=== PATIENT | female | born 1990 | race Caucasian/White ===

== ENCOUNTER 2021-10-19 14:07 | Emergency (ER) | payer BC, SELFPAY ==
--- NOTE | ~2021-10-19 | XR_ITS ---
EXAMINATION: XR chest 1V portable DATE: 10/19/2021 15:11 INDICATION: Shortness of breath and chest congestion TECHNIQUE: frontal view of the chest was obtained. COMPARISON: None FINDINGS: The lungs are clear with no focal airspace opacities, pulmonary edema, pleural effusion or pneumothor ax. Heart size is normal. Calcified left hilar lymph nodes consistent with old granulomatous disease. Visualized bones and soft tissues are unremarkable. IMPRESSION: 1. No acute cardiopulmonary disease. Reviewed, dictated and finalized at location A.
[2021-10-19 14:43] VITALS: BP 125/80; PULSE 65; RESP 18; TEMP 36.7; O2SAT 100
--- NOTE | 2021-10-19 14:59 | ED.URI ---
HPI - URI/Sore Throat General Chief Complaint: Upper Respiratory Infection Stated Complaint: congestion, cough Time Seen by Provider: 10/19/21 14:48 History of Present Illness HPI Narrative: 31-year-old female presents to the emergency room for evaluation of shortness of breath for 4 days. Patient states she has a history of asthma, and was recently diagnosed with COVID. Patient states that she has used her rescue inhaler twice with good benefit. Patient denies fever. Patient also complains of sinus congestion postnasal drip and cough. Related Data Allergies Allergy/AdvReac Type Severity Reaction Status Date / Time sulfamethoxazole Allergy Rash Verified 10/19/21 15:02 [From Bactrim] trimethoprim [From Bactrim] Allergy Rash Verified 10/19/21 15:02 Review of Systems Review of Systems: CONSTITUTIONAL: Denies fever, chills, or sweats. EYES: Denies visual changes, redness, or discharge. ENT: Denies rhinorrhea, congestion, sore throat, or otalgia. CARDIOVASCULAR: Denies chest pain, palpitations, or edema. RESPIRATORY: Reports cough and shortness of breath GASTROINTESTINAL: Denies abdominal pain, nausea, vomiting, or diarrhea. GENITOURINARY: Denies dysuria or hematuria. SKIN: Denies rash or itching. MUSCULOSKELETAL: Denies back pain, joint pain, or myalgia. NEUROLOGIC: Denies headache, numbness, dizziness, or weakness. PSYCHIATRIC: Denies anxiety or depression. Exam Narrative: GENERAL: Well-appearing, well-nourished, and in no acute distress. HEAD: Normocephalic, atraumatic. EYES: PERRLA and EOMI. ENT: Nares clear, no rhinorrhea or epistaxis. Mucous membranes moist. Oropharynx without tonsillar hypertrophy exudate or other lesions. Bilateral TMs pearly ladd nonbulging CHEST: Clear to auscultation. No respiratory distress. No wheezes rales or rhonchi HEART: Regular rate and rhythm. No murmur heard. Normal peripheral pulses. ABDOMEN: Soft, nontender, nondistended, normal active bowel sounds. EXTREMITIES: Normal range of motion. No edema. SKIN: Warm, dry, no rash. NEURO: No focal deficits. Alert and oriented x3. PSYCH: Normal mood and affect. Course Vital Signs Vital signs: Vital Signs Temperature 36.7 C 10/19/21 14:43 Pulse Rate 65 10/19/21 14:43 Respiratory Rate 18 10/19/21 14:43 Blood Pressure 125/80 10/19/21 14:43 Pulse Oximetry 100 10/19/21 14:43 Temperature 36.7 C 10/19/21 14:43 Pulse Rate 66 10/19/21 15:15 Respiratory Rate 18 10/19/21 15:15 Blood Pressure 125/80 10/19/21 14:43 Pulse Oximetry 100 10/19/21 14:43 Discharge Plan Discharge Clinical Impression: COVID-19 Patient Disposition: Home, Self-Care Condition: Stable Instructions: Antibiotic Form Additional Instructions: Recommend taking Tylenol and ibuprofen as needed for body aches and fevers. May take Mucinex DM for cough. Recommend taking pseudoephedrine 2-3 times daily for your sinus congestion. Continue taking your albuterol inhaler as needed for shortness of breath and cough. Prescriptions: New prednisone 20 mg tablet 20 mg PO DAILY Qty: 5 RF: 0 Follow-up/Referrals: PHYSICIAN NOT ON STAFF,NONSTAFF [Primary Care Provider] - Time of Disposition: 15:57
[2021-10-19 15:15] VITALS: PULSE 66; RESP 18
[2021-10-19] MEDS: ALBUTEROL SULFATE NEB 2.5 MG/0.5 ML INH INHALATION (15:15)
[2021-10-19] MEDS: IPRATROPIUM BR 0.02% INH SOLN 0.5 MG/2.5 ML VIAL INHALATION (15:15)
[2021-10-19 16:18] VITALS: BP 122/74; PULSE 74; RESP 16; TEMP 36.8; O2SAT 100
--- NOTE | 2021-10-20 15:00 | PC.NURSE ---
pt returned to ed stating she did not get her prescription yesterday. discussed with dr. costello and prescription called in to [facility] in [place]
== END 2021-10-19 16:19 | disposition home or self-care (01) ==
PROVIDERS: Emergency Provider Nurse Practitioner Family
DX: U07.1 COVID-19 (principal); J45.909 Unspecified asthma, uncomplicated
CPT/HCPCS: 71045; 94640; 96372; 99283; J1100